=== PATIENT | female | born 1995 | race Hispanic/Latino ===

== ENCOUNTER → 2017-10-29 | Outpatient (CLI) | payer OTHER ==
--- NOTE | 2017-10-29 16:48 | Diagnostic Imaging Report ---
PROCEDURE: Frontal and lateral views of the chest. COMPARISON: 08/07/17 INDICATIONS: PNEUMONIA FOLLOW UP FINDINGS: Lines/tubes: None. Lungs: The lungs are well inflated and clear. There is no evidence of pneumonia or pulmonary edema. Unchanged biapical scarring, left more than right. Right upper lobe tiny nodular density is unchanged and is probably a calcified granuloma. Pleura: There is no pleural effusion or pneumothorax. Heart and mediastinum: The heart and the mediastinum are normal. Bones: No acute bony abnormality. IMPRESSION: 1. No acute cardiopulmonary disease. Dictated by: Eligio Johnson M.D. on 10/29/2017 at 16:57 Electronically approved by: Eligio Johnson M.D. on 10/29/2017 at 16:57
== END ==
LOC: RAD 15:56
PROVIDERS: ATTEND Internal Medicine
DX: J18.9 Pneumonia, unspecified organism (principal)
CPT/HCPCS: 71020

== ENCOUNTER → 2017-12-31 | Outpatient (CLI) | payer OTHER ==
--- NOTE | 2017-12-31 12:25 | Diagnostic Imaging Report ---
PROCEDURE: X-RAY CHEST, TWO VIEWS COMPARISON: 10/29/2017. INDICATIONS: PNEUMONIA FINDINGS: The lungs remain well-inflated. Unchanged left greater than right apical pleural-parenchymal scar and right upper lobe calcified granuloma. No new airspace consolidation. No pleural effusion or pneumothorax. Stable cardiomediastinal contour with bilateral upward hilar retraction. No acute osseous abnormality. CONCLUSION: No acute cardiopulmonary abnormality. No consolidative pneumonia. Dictated by: Kailash Encinas M.D. on 12/31/2017 at 12:25 Electronically approved by: Kailash Encinas M.D. on 12/31/2017 at 12:25
== END ==
LOC: RAD 11:47
PROVIDERS: ATTEND Internal Medicine
DX: Z09 Encounter for follow-up examination after completed treatment for conditions other than malignant neoplasm (principal)
CPT/HCPCS: 71046